=== PATIENT | female | born 1960 | race Two or more races ===

== ENCOUNTER 2019-09-17 09:45 | Inpatient (IN) | payer OTHER ==
[~2019-09-17] VITALS: Ht 160 cm; Wt 80.3 kg
[2019-09-17] MEDS ORDERED: VASOTEC20 M1 PO (11:08)
[2019-09-17] MEDS ORDERED: LANTUS SOL100 UNIT/1 (11:08)
[2019-09-17] MEDS ORDERED: HUMALOG100 UNIT/2 (11:09)
[2019-09-27] MEDS ORDERED: MIRALAX17 GM PO (07:13)
[2019-09-27] MEDS ORDERED: ULTRAM50 MG PO (07:13)
[2019-09-27] MEDS ORDERED: INTESTINEX680 M1 PO (07:13)
[2019-09-27] MEDS ORDERED: TYLENOL ARTHRI650 MG PO (07:13)
[2019-09-27] MEDS ORDERED: KEFLEX500 MG PO (07:13)
== END 2019-09-27 09:57 | disposition home or self-care (01) | DRG 336 ==
LOC: O/R 09-24 05:20 → SURH 09-24 05:20 → O/R 09-24 09:45 → SURG 09-24 09:45 → SURH 09-24 17:15 → SURG 09-24 18:30 → SURH 09-27 09:57
PROVIDERS: Surgery; ADMIT Obstetrics & Gynecology Gynecologic Oncology
PROC: 0KXL0Z6 Transfer Left Abdomen Muscle, Transverse Rectus Abdominis Myocutaneous Flap, Open Approach (ICD-10-PCS; 2019-09-24)
PROC: 0KXK0Z6 Transfer Right Abdomen Muscle, Transverse Rectus Abdominis Myocutaneous Flap, Open Approach (ICD-10-PCS; 2019-09-24)
PROC: 0DBW0ZZ Excision of Peritoneum, Open Approach (ICD-10-PCS; 2019-09-24)
PROC: 3E1M38Z Irrigation of Peritoneal Cavity using Irrigating Substance, Percutaneous Approach (ICD-10-PCS; 2019-09-24)
PROC: 0DNW0ZZ Release Peritoneum, Open Approach (ICD-10-PCS; principal; 2019-09-24 18:30)
PROC: 0WUF0JZ Supplement Abdominal Wall with Synthetic Substitute, Open Approach (ICD-10-PCS; 2019-09-24 18:30)
DX: C76.2 Malignant neoplasm of abdomen (principal); K42.0 Umbilical hernia with obstruction, without gangrene; K43.2 Incisional hernia without obstruction or gangrene; K66.0 Peritoneal adhesions (postprocedural) (postinfection)